=== PATIENT | male | born 1990 | race Hispanic/Latino ===

== ENCOUNTER 2020-06-01 22:59 | Inpatient (IN) | payer SELFPAY ==
[2020-06-01] MEDS ORDERED: LIDOCAINE VISCOUS 2% SOLN 15 ML UDC ONE (23:36)
[2020-06-01] MEDS ORDERED: MAGNE/ALUM HYDROXD 30 ML UCUP ONE (23:36)
[2020-06-01] MEDS ORDERED: PANTOPRAZOLE 40 MG INJ ONE (23:36)
[2020-06-01 23:46] LABS: Absolute Lymphocytes (CBC) 4.6 K/uL (0.7-4.9); Hematocrit 44.4 % (39.6-49.0); Lymphocytes % 29.2 % (15.3-44.8); MPV 9.6 fL (7.6-11.3); RBC Red Blood Cell Count 5.15 M/uL (4.33-5.43)
[2020-06-02 00:11] LABS: ALT/SGPT 106 U/L (12-78); AST/SGOT 39 U/L (15-37); Albumin 4.2 g/dL (3.4-5.0); Alkaline Phosphatase 96 U/L (45-117); BUN Blood Urea Nitrogen 23 mg/dL (7-18); Bicarbonate 26 mmol/L (21-32); Bilirubin Direct < 0.1 mg/dL (0-0.2); Bilirubin Total 0.3 mg/dL (0.2-1.0); Glucose Level 111 mg/dL (74-106); Lipase 3372 U/L (73-393); Potassium 3.5 mmol/L (3.5-5.1); Protein, Total 8.5 g/dL (6.4-8.2); Sodium Level 140 mmol/L (136-145)
[2020-06-02] MEDS ORDERED: ONDANSETRON 4 MG/2 ML VIAL ONE (00:54)
[2020-06-02] MEDS ORDERED: MORPHINE 4 MG/ML SYR ONE (00:54)
[2020-06-02] MEDS ORDERED: NA CHLORIDE 0.9% 1,000 ML ONE ×2 (00:54→02:56)
--- NOTE | 2020-06-02 01:19 | EDPHYS ---
Physician Documentation [facility] Name: Carlito Magaña Age: 29 yrs Sex: Male : 1990 Arrival Date: 06/01/2020 Time: 23:03 Bed 18 Private MD: ED Physician Jose J Gonzalez HPI: 06/02 00:07 This 29 yrs old Male presents to ER via Ambulatory with complaints of kb Abdominal Pain. 00:07 The patient presents with abdominal pain in the epigastric area. Onset: The kb symptoms/episode began/occurred 3 week(s) ago. The symptoms do not radiate. Associated signs and symptoms: none. The symptoms are described as burning. Modifying factors: The symptoms are alleviated by nothing, the symptoms are aggravated by food, spicy food. Severity of pain: At its worst the pain was moderate in the emergency department the pain is unchanged. The patient has not experienced similar symptoms in the past. The patient has not recently seen a physician. Pt reports burning pain to epigastric area that started 3 weeks ago and has become constant. States the pain is worse after eating, especially spice foods. . Historical: - Allergies: 06/01 23:27 No Known Allergies; bb - Home Meds: 23:27 None [Active]; bb - PMHx: 23:27 ADD/ADHD; Anxiety; bb - PSHx: 23:27 None; bb - Immunization history:: Adult Immunizations up to date. - Social history:: Smoking status: Patient reports the use of cigarette tobacco products, smokes one pack cigarettes per day. ROS: 06/02 00:08 Constitutional: Negative for fever, chills, and weight loss, Cardiovascular: Negative kb for chest pain, palpitations, and edema, Respiratory: Negative for shortness of breath, cough, wheezing, and pleuritic chest pain, Back: Negative for injury and pain, MS/Extremity: Negative for injury and deformity, Skin: Negative for injury, rash, and discoloration, Neuro: Negative for headache, weakness, numbness, tingling, and seizure. Abdomen/GI: Positive for abdominal pain, Negative for nausea and vomiting. Exam: 00:08 Constitutional: This is a well developed, well nourished patient who is awake, alert, kb and in no acute distress. Head/Face: Normocephalic, atraumatic. Chest/axilla: Normal chest wall appearance and motion. Nontender with no deformity. No lesions are appreciated. Cardiovascular: Regular rate and rhythm with a normal S1 and S2. No gallops, murmurs, or rubs. Normal PMI, no JVD. No pulse deficits. Respiratory: Lungs have equal breath sounds bilaterally, clear to auscultation and percussion. No rales, rhonchi or wheezes noted. No increased work of breathing, no retractions or nasal flaring. Back: No spinal tenderness. No costovertebral tenderness. Full range of motion. Skin: Warm, dry with normal turgor. Normal color with no rashes, no lesions, and no evidence of cellulitis. MS/ Extremity: Pulses equal, no cyanosis. Neurovascular intact. Full, normal range of motion. Neuro: Awake and alert, GCS 15, oriented to person, place, time, and situation. Cranial nerves II-XII grossly intact. Motor strength 5/5 in all extremities. Sensory grossly intact. Cerebellar exam normal. Normal gait. 00:08 Abdomen/GI: Inspection: abdomen appears normal, Bowel sounds: normal, in all quadrants, Palpation: soft, in all quadrants, mild abdominal tenderness, in the epigastric area. Vital Signs: 06/01 23:25 BP 151 / 89; Pulse 91; Resp 14 S; Temp 98.3(O); Pulse Ox 97% on R/A; Weight 104.33 kg bb (R); Height 5 ft. 8 in. (172.72 cm) (R); Pain 4/10; 06/02 00:36 BP 132 / 77; Pulse 78; Resp 18; Pulse Ox 96% on R/A; wh 01:44 BP 110 / 41; Pulse 71; Resp 18; Pulse Ox 98% ; wh 06/01 23:25 Body Mass Index 34.97 (104.33 kg, 172.72 cm) bb MDM: 06/01 23:18 Patient medically screened. kb 06/02 00:08 Data reviewed: vital signs, nurses notes. Data interpreted: Pulse oximetry: on room air kb is 97 %. Interpretation: normal. 01:17 Counseling: I had a detailed discussion with the patient and/or guardian regarding: the kb historical points, exam findings, and any diagnostic results supporting the discharge/admit diagnosis, lab results, radiology results, the need for further work-up and treatment in the hospital. Physician consultation: Mckayla Griffith MD was contacted at 01:17, regarding admission, to the medical/surgical unit. patient's condition, and will see patient in ED, shortly. 06/01 23:24 Order name: Basic Metabolic Panel; Complete Time: 00:18 kb 06/01 23:24 Order name: CBC with Diff; Complete Time: 23:48 kb 06/01 23:24 Order name: Hepatic Function; Complete Time: 00:18 kb 06/01 23:24 Order name: Lipase; Complete Time: 00:18 kb 06/02 01:16 Order name: Lipid Profile 06/01 23:24 Order name: IV Saline Lock; Complete Time: 23:39 kb 06/02 00:23 Order name: Abdomen EDNM 06/02 01:46 Order name: Heart Healthy [facility] 06/01 23:24 Order name: Labs collected and sent; Complete Time: 23:39 kb Administered Medications: 06/01 23:38 Drug: GI Cocktail without - (Maalox Suspension 30 ml, Lidocaine Liquid 2 % 15 wh ml) Route: PO; 06/02 00:30 Follow up: Response: No adverse reaction 06/01 23:38 Drug: ProTONIX 40 mg Route: IVP; Site: right antecubital; 06/02 00:30 Follow up: Response: No adverse reaction 00:45 Drug: NS 0.9% 1000 ml Route: IV; Rate: 1000 ml; Site: right antecubital; 01:43 Follow up: Response: No adverse reaction; IV Status: Completed infusion 00:47 Drug: morphine 4 mg {Note: RASS 0.} Route: IVP; Site: right antecubital; 01:43 Follow up: Response: No adverse reaction; Pain is decreased; RASS: Alert and Calm (0) 00:49 Drug: Zofran (Ondansetron) 4 mg Route: IVP; Site: right antecubital; 01:43 Follow up: Response: No adverse reaction; Nausea is decreased Disposition: 06/02/20 01:17 Hospitalization ordered by Mckayla Griffith for Observation. Preliminary diagnosis are Acute pancreatitis, Elevated white blood cell count. - Bed requested for Telemetry/MedSurg (observation). - Status is Observation. hb - Condition is Stable. - Problem is new. - Symptoms are unchanged. Addendum: 06/07/2020 03:23 Co-signature as Attending Physician, Jose J Gonzalez MD. m Signatures: Dispatcher [employer] EDNM Felipa Bob, TIGHTENING MACHINE OPERATOR-C TIGHTENING MACHINE OPERATOR-Ckb Emi Mcnair, RN RN Jo Dominguez, RN SATISH bb Tabatha Barros, SATISH COVARRUBIAS Afsaneh Stanley Jose J Gonzalez MD MD [id number] Corrections: (The following items were deleted from the chart) 06/02 00:24 06/01 23:49 Abdomen Pelvis W Con+CT.RAD.BRZ ordered. [facility] 06/02 01:32 01:17 Hospitalization Ordered by Mckayla Griffith MD for Observation. Preliminary mw diagnosis is Acute pancreatitis; Elevated white blood cell count. Bed requested for Telemetry/MedSurg (observation). Status is Observation. Condition is Stable. Problem is new. Symptoms are unchanged. kb 05:54 01:32 06/02/2020 01:17 Hospitalization Ordered by Mckayla Griffith MD for Observation. mw Preliminary diagnosis is Acute pancreatitis; Elevated white blood cell count. Bed requested for [facility] ER HOLD. Status is Observation. Condition is Stable. Problem is new. Symptoms are unchanged. mw 05:59 05:54 06/02/2020 01:17 Hospitalization Ordered by Mckayla Griffith MD for Observation. mw Preliminary diagnosis is Acute pancreatitis; Elevated white blood cell count. Bed requested for Telemetry/MedSurg (observation). Status is Observation. Condition is Stable. Problem is new. Symptoms are unchanged. mw 08:13 05:59 06/02/2020 01:17 Hospitalization Ordered by Mckayla Griffith MD for Observation. hb Preliminary diagnosis is Acute pancreatitis; Elevated white blood cell count. Bed requested for Telemetry/MedSurg (observation). Status is Observation. Condition is Stable. Problem is new. Symptoms are unchanged.
--- NOTE | 2020-06-02 01:19 | ER ---
Nurse's Notes [facility] Name: Carlito Magaña Age: 29 yrs Sex: Male : 1990 Arrival Date: 06/01/2020 Time: 23:03 Bed 18 Private MD: Diagnosis: Acute pancreatitis;Elevated white blood cell count Presentation: 06/01 23:25 Chief complaint: Patient states: he has been having intermittent epigastric pain x 3 bb weeks but constantly this last week, worse with eating hot things and burning in his throat. Coronavirus screen: At this time, the client does not indicate any symptoms associated with coronavirus-19. Ebola Screen: No symptoms or risks identified at this time. Initial Sepsis Screen: Does the patient meet any 2 criteria? No. Patient's initial sepsis screen is negative. Does the patient have a suspected source of infection? No. Patient's initial sepsis screen is negative. Risk Assessment: Do you want to hurt yourself or someone else? Patient reports no desire to harm self or others. Onset of symptoms was May 2020. 23:25 Method Of Arrival: Ambulatory bb 23:25 Acuity: DEIDRA 3 bb Historical: - Allergies: 23:27 No Known Allergies; bb - Home Meds: 23:27 None [Active]; bb - PMHx: 23:27 ADD/ADHD; Anxiety; bb - PSHx: 23:27 None; bb - Immunization history:: Adult Immunizations up to date. - Social history:: Smoking status: Patient reports the use of cigarette tobacco products, smokes one pack cigarettes per day. Screenin/01 00:36 Abuse screen: Denies threats or abuse. Denies injuries from another. Nutritional wh screening: No deficits noted. Tuberculosis screening: No symptoms or risk factors identified. Fall Risk None identified. Assessment: 06/01 23:40 General: Appears in no apparent distress. Behavior is calm, cooperative, appropriate wh for age. Pain: Complains of pain in epigastric area Pain does not radiate. Pain currently is 4 out of 10 on a pain scale. Quality of pain is described as burning. Neuro: Level of Consciousness is awake, alert, obeys commands, Oriented to person, place, time, situation, Appropriate for age. Cardiovascular: Heart tones S1 S2. Respiratory: Airway is patent Respiratory effort is even, unlabored, Respiratory pattern is regular, symmetrical, Breath sounds are clear bilaterally. GI: Abdomen is flat, non-distended, Bowel sounds present X 4 quads. Abd is soft Abdomen is tender to palpation in epigastric area Reports upper abdominal pain. : No signs and/or symptoms were reported regarding the genitourinary system. EENT: No signs and/or symptoms were reported regarding the EENT system. Derm: Skin is intact, is healthy with good turgor, Skin is pink, warm \T\ dry. normal. Musculoskeletal: Circulation, motion, and sensation intact. 06/02 00:36 Reassessment: Patient appears in no apparent distress at this time. No changes from previously documented assessment. Patient and/or family updated on plan of care and expected duration. Pain level reassessed. Patient is alert, oriented x 3, equal unlabored respirations, skin warm/dry/pink. 01:44 Reassessment: Patient appears in no apparent distress at this time. No changes from previously documented assessment. Patient and/or family updated on plan of care and expected duration. Pain level reassessed. Patient is alert, oriented x 3, equal unlabored respirations, skin warm/dry/pink. 07:11 Reassessment: Attempted to call report to floor, receiving nurse unavailable, still in hb morning report per nuclear unit operator. Awaiting a call back at this time. Pt charting continues in [facility]. Vital Signs: 06/01 23:25 BP 151 / 89; Pulse 91; Resp 14 S; Temp 98.3(O); Pulse Ox 97% on R/A; Weight 104.33 kg bb (R); Height 5 ft. 8 in. (172.72 cm) (R); Pain 4/10; 06/02 00:36 BP 132 / 77; Pulse 78; Resp 18; Pulse Ox 96% on R/A; wh 01:44 BP 110 / 41; Pulse 71; Resp 18; Pulse Ox 98% ; 06/01 23:25 Body Mass Index 34.97 (104.33 kg, 172.72 cm) bb ED Course: 06/01 23:03 Patient arrived in ED. cf2 23:03 Jaleel Navarrete RN is Primary Nurse. rv 23:18 Felipa Bob FNP-C [facility] kb 23:18 Jose J Gonzalez MD is Attending Physician. kb 23:27 Triage completed. 23:27 Arm band placed on Patient placed in an exam room, on a stretcher, on pulse oximetry. 06/02 00:05 Inserted saline lock: 20 gauge in right antecubital area, using aseptic technique. Blood collected. 00:36 Patient has correct armband on for positive identification. Bed in low position. Call light in reach. Side rails up X 1. Pulse ox on. NIBP on. 00:57 Abdomen In Process Unspecified. EDRI 01:17 Mckayla Griffith MD is Hospitalizing Provider. kb 01:42 No provider procedures requiring assistance completed. Patient admitted, IV remains in place. 04:11 Primary Nurse role handed off by Jaleel Navarrete RN 04:11 Afsaneh Stanley is Primary Nurse. Administered Medications: 06/01 23:38 Drug: GI Cocktail without - (Maalox Suspension 30 ml, Lidocaine Liquid 2 % 15 wh ml) Route: PO; 06/02 00:30 Follow up: Response: No adverse reaction 06/01 23:38 Drug: ProTONIX 40 mg Route: IVP; Site: right antecubital; 06/02 00:30 Follow up: Response: No adverse reaction 00:45 Drug: NS 0.9% 1000 ml Route: IV; Rate: 1000 ml; Site: right antecubital; 01:43 Follow up: Response: No adverse reaction; IV Status: Completed infusion 00:47 Drug: morphine 4 mg {Note: RASS 0.} Route: IVP; Site: right antecubital; 01:43 Follow up: Response: No adverse reaction; Pain is decreased; RASS: Alert and Calm (0) 00:49 Drug: Zofran (Ondansetron) 4 mg Route: IVP; Site: right antecubital; 01:43 Follow up: Response: No adverse reaction; Nausea is decreased Outcome: 01:17 Decision to Hospitalize by Provider. kb 01:42 Admitted to ER Hold. Please see [facility] for further documentation. 01:42 Condition: stable 01:42 Instructed on the need for admit. 08:13 Patient left the ED. hb Signatures: Dispatcher [employer] EDMS Felipa Bob, FAWN-C BALLAST CLEANING OPERATOR-Jo Olivier RN RN Tabatha Oliver, RN RN awa Stanley, Afsaneh Jaleel Navarrete, RN RN bertram Zavala, Kristen [facility]
[2020-06-02] MEDS ORDERED: ONDANSETRON 4 MG/2 ML VIAL IV PRN (01:43)
[2020-06-02] MEDS ORDERED: ACETAMINOPHEN 500 MG TAB PO PRN (01:43)
[2020-06-02] MEDS: NA CHLORIDE 0.9% 1,000 ML IV SCH ×6 (02:00→23:16)
[2020-06-02] MEDS ORDERED: ALBUTEROL 2.5 MG/3 ML NEB SOL NEB SCH (02:00)
[2020-06-02] MEDS ORDERED: NA CHLORIDE 0.9% 1,000 ML IV SCH (02:00)
[2020-06-02 02:12] VITALS: BMI 34.9
[2020-06-02] MEDS ORDERED: HYDROCODONE/APAP 7.5/325 MG TAB PO PRN (09:22)
[2020-06-02] MEDS ORDERED: TRAMADOL HCL 50 MG TAB PO PRN (09:22)
[2020-06-02] MEDS: MORPHINE 2 MG/ML SYR IV PRN ×2 (10:03→16:56)
[2020-06-02] MEDS: ENOXAPARIN 40 MG/0.4 ML SQ SCH (10:04)
[2020-06-03 00:34] VITALS: O2SAT 98
--- NOTE | 2020-06-03 01:58 | P.HP ---
Certification for Inpatient Patient admitted to: Inpatient With expected LOS: >2 Midnights Patient will require the following post-hospital care: None Practitioner: I am a practitioner with admitting privileges, knowledge of patient current condition, hospital course, and medical plan of care. Services: Services provided to patient in accordance with Admission requirements found in Title 42 Section 412.3 of the Code of Federal Regulations Patient History Date of Service: 06/02/20 Reason for admission: Acute pancreatitis History of Present Illness: Patient is a 29-year-old gentleman who came to the hospital with abdominal pain. Pain was in the epigastric region. Patient states it was severe. Patient came into the emergency room for further evaluation. In the emergency room patient was given pain medication and IV fluids. Labs revealed pancreatitis. CT scan did not reveal the etiology of the pancreatitis. Patient denies alcohol use. Patient's triglycerides were normal as well. Plan know the etiology as to the cause of the pancreatitis but he will need to be admitted to the hospital for further workup. Allergies No Known Drug Allergies Allergy (Verified 06/02/20 02:14) Unknown No Known Allergies Allergy (Uncoded 06/02/20 02:14) Unknown Home Medications: NK [No Home Meds] 06/02/20 - Past Medical/Surgical History Has patient received pneumonia vaccine in the past: No Diabetic: No -: ADHD -: Anxiety Past Surgical History: Patient denies surgical history - Family History Father Family History: Reviewed- Non-Contributory - Social History Smoking Status: Current every day smoker Alcohol use: No CD- Drugs: No Place of Residence: Home Review of Systems 10-point ROS is otherwise unremarkable Physical Examination - Vital Signs Temperature: 97.9 F Blood Pressure: 117/62 Pulse: 76 Respirations: 18 Pulse Ox (%): 98 - Physical Exam General: Alert, In no apparent distress, Oriented x3 HEENT: Atraumatic, PERRLA, Mucous membr. moist/pink, EOMI, Sclerae nonicteric Neck: Supple, 2+ carotid pulse no bruit, No LAD, Without JVD or thyroid abnormality Respiratory: Clear to auscultation bilaterally, Normal air movement Cardiovascular: Regular rate/rhythm, Normal S1 S2, No murmurs Gastrointestinal: Normal bowel sounds, Soft and benign, Non-distended, No guarding, Tenderness, Rebound Musculoskeletal: No clubbing, No swelling, No tenderness Integumentary: No rashes Neurological: Normal gait, Normal speech, Normal strength at 5/5 x4 extr, Normal tone, Sensation intact, Cranial nerves 3-12 intact, Normal affect Lymphatics: No axilla or inguinal lymphadenopathy Assessment & Plan - Problems (Diagnosis) (1) Acute pancreatitis Current Visit: Yes Status: Acute - Plan Plan: 1. Aggressive IV hydration 2. Pain medication 3. Monitor lipase level 4. May need to repeat CT scan or will do an ultrasound 5. Monitor labs closely 6. GI and DVT prophylaxis Discharge Plan: Home Plan to discharge in: Greater than 2 days - Advance Directives Does patient have a Living Will: No Does patient have a Durable POA for Healthcare: No - Code Status/Comfort Care Code Status Assessed: Yes Code Status: Full Code Critical Care: No Time Spent Managing PTS Care (In Minutes): 40
--- NOTE | 2020-06-03 04:45 | P.PN ---
Subjective Date of Service: 06/03/20 PATIENT'S SYMPTOMS ARE IMPROVING. PAIN IS BETTER CONTROLLED. AWAITING LABS THIS MORNING. IF CONTINUES TO IMPROVE THEN WILL GO AHEAD AND START HIM ON A DIET. IF HE IS ABLE TO TOLERATE THE DIET WE MAY BE ABLE TO DISCHARGE HIM HOME IN THE MORNING. Review of Systems 10-point ROS is otherwise unremarkable Physical Examination - Vital Signs Temperature: 97.9 F Blood Pressure: 117/62 Pulse: 76 Respirations: 18 Pulse Ox (%): 98 - Physical Exam General: Alert, In no apparent distress, Oriented x3 Respiratory: Clear to auscultation bilaterally, Normal air movement Cardiovascular: Regular rate/rhythm, Normal S1 S2, No murmurs Gastrointestinal: Normal bowel sounds, Soft and benign, Non-distended, No tenderness, No rebound, No guarding Musculoskeletal: No clubbing, No swelling, No tenderness Neurological: Normal strength at 5/5 x4 extr, Sensation intact, Cranial nerves 3-12 intact - Studies Medications List Reviewed: Yes Assessment & Plan - Problems (Diagnosis) (1) Acute pancreatitis Status: Acute - Plan Plan: 1. Aggressive IV hydration 2. Pain medication 3. Monitor lipase level 4. May need to repeat CT scan or will do an ultrasound 5. Monitor labs closely 6. GI and DVT prophylaxis Discharge Plan: Home Plan to discharge in: Greater than 2 days - Advance Directives Does patient have a Living Will: No Does patient have a Durable POA for Healthcare: No - Code Status/Comfort Care Code Status: Full Code Critical Care: No Time Spent Managing PTS Care (In Minutes): 30
[2020-06-03] MEDS: NA CHLORIDE 0.9% 1,000 ML IV SCH ×4 (05:38→19:50)
[2020-06-03 06:49] LABS: Absolute Lymphocytes (CBC) 3.8 K/uL (0.7-4.9); Basophils % 0.7 % (0-1.3); Hematocrit 41.6 % (39.6-49.0); Lymphocytes % 29.8 % (15.3-44.8)
[2020-06-03 06:51] LABS: Magnesium 1.9 mg/dL (1.8-2.4); Phosphorus 2.7 mg/dL (2.5-4.9)
[2020-06-03 07:04] LABS: Albumin 3.6 g/dL (3.4-5.0); Bilirubin Total 0.5 mg/dL (0.2-1.0); Potassium 3.5 mmol/L (3.5-5.1); Protein, Total 7.5 g/dL (6.4-8.2)
[2020-06-03] MEDS: ENOXAPARIN 40 MG/0.4 ML SQ SCH (08:19)
[2020-06-03 09:15] LABS: Urine Appearance CLEAR; Urine Bilirubin NEGATIVE (NEG); Urine Blood NEGATIVE (NEG); Urine Color YELLOW; Urine Glucose NEGATIVE (NEG); Urine Protein NEGATIVE (NEG); Urine Urobilinogen 0.2 mg/dL (0.2-1.0)
[2020-06-03 09:17] LABS: Urine Microscopic Reflex NO UMIC
[2020-06-03] MEDS ORDERED: POTASSIUM CL SA 10 MEQ TAB PO ONE (12:00)
--- NOTE | 2020-06-04 11:34 | RAD REPORT ---
EXAM DESCRIPTION: Pelvis Wo Contrast CLINICAL HISTORY: 29 years Male ABD PAIN COMPARISON: None TECHNIQUE: Images were obtained in axial, sagittal, and coronal planes. No oral or intravenous contr ast was administered. This exam was performed according to our departmental dose-optimization program which includes use of Automated Exposure Control, adjustment of the mA and/or kV according to patient size and/or use o f iterative reconstruction technique. FINDINGS: Decreased attenuation involving liver consistent with fatty change. Spleen is prominent in size measuring 12.3 cm in greatest dimension. Contracted gallbladder. Mildly indistinct pancreatic m argins. No abnormal fluid collections involving the pancreas or abnormal calcification. No obstructing renal calcifications bilaterally. No hydronephrosis bilaterally. Unremarkable bladder. Appendix within normal limits. No bowel obstruction, perforation, or inflammation. No dilatation abdominal aorta. No adenopathy or abnormal fluid collections seen. No abnormality lower lungs bilaterally. No acute osseous abnormality. IMPRESSION: Fatty change involving liver. Indistinct pancreatic margins. Clinical correlation would be suggested to further exclude mild pancre atitis. No additional abnormalities seen. Electronically signed by: Carri Arvizu MD 06/02/2020 1:04 AM CDT Due to temporary technical issues with the PACS/Fluency reporting system, reports are being signed by the in house radiologist without review as a courtesy to ensure prompt reporting. The interpreting r adiologist is fully responsible for the content of the report.
[2020-06-06 06:47] VITALS: BP 117/62; TEMP 97.9
--- NOTE | 2020-06-06 06:48 | P.DS ---
Discharge Date: 06/03/20 Disposition: AMA-LEFT AGAINST MEDICAL ADVIC Discharge Condition: FAIR Reason for Admission: Acute pancreatitis - Problems (1) Acute pancreatitis Status: Acute Brief History of Present Illness: Patient is a 29-year-old gentleman who came to the hospital with abdominal pain. Pain was in the epigastric region. Patient states it was severe. Patient came into the emergency room for further evaluation. In the emergency room patient was given pain medication and IV fluids. Labs revealed pancreatitis. CT scan did not reveal the etiology of the pancreatitis. Patient denies alcohol use. Patient's triglycerides were normal as well. Plan know the etiology as to the cause of the pancreatitis but he will need to be admitted to the hospital for further workup. Hospital Course: Patient decided to leave against medical advise. Patient's lipase was still elevated. I had a long conversation with patient about refrain from fatty foods and alcohol. Patient realized he needed to come back to the hospital if his condition worsens. Vital Signs/Physical Exam: Temp Pulse Resp BP Pulse Ox 97.9 F 76 18 117/62 98 06/06/20 06:46 06/06/20 06:46 06/06/20 06:46 06/06/20 06:46 06/06/20 06:46 General: Alert, In no apparent distress, Oriented x3 Laboratory Data at Discharge: WBC 12.9 K/uL (4.3-10.9) H D 06/03/20 05:27 Hgb 13.8 g/dL (13.6-17.9) 06/03/20 05:27 Hct 41.6 % (39.6-49.0) 06/03/20 05:27 Plt Count 246 K/uL (152-406) 06/03/20 05:27 Sodium 140 mmol/L (136-145) 06/03/20 05:27 Potassium 3.5 mmol/L (3.5-5.1) 06/03/20 05:27 BUN 16 mg/dL (7-18) 06/03/20 05:27 Creatinine 1.13 mg/dL (0.55-1.3) 06/03/20 05:27 Glucose 81 mg/dL (74-106) 06/03/20 05:27 Phosphorus 2.7 mg/dL (2.5-4.9) 06/03/20 05:27 Magnesium 1.9 mg/dL (1.8-2.4) 06/03/20 05:27 Total Bilirubin 0.5 mg/dL (0.2-1.0) 06/03/20 05:27 AST 33 U/L (15-37) 06/03/20 05:27 ALT 80 U/L (12-78) H 06/03/20 05:27 Alkaline Phosphatase 83 U/L (45-117) 06/03/20 05:27 Triglycerides 396 mg/dL (<150) H 06/02/20 00:01 Cholesterol 240 mg/dL (<200) H 06/02/20 00:01 HDL Cholesterol 30 mg/dL (40-60) L 06/02/20 00:01 Cholesterol/HDL Ratio 8.00 06/02/20 00:01 Lipase 1736 U/L (73-393) H 06/03/20 05:27 Lipase Cancelled 06/03/20 05:27 Home Medications: NK [No Home Meds] 06/02/20 Patient Discharge Instructions: Patient left against medical advice Time spent managing pt's care (in minutes): 20
== END 2020-06-03 21:23 | disposition left against medical advice (07) | DRG 440 ==
LOC: ER 22:59 → ERHOLD 06-02 01:50 → 2ND 06-02 07:59
PROVIDERS: ADMIT Hospitalist; ATTEND Hospitalist
DX: K85.90 Acute pancreatitis without necrosis or infection, unspecified (principal); F17.200 Nicotine dependence, unspecified, uncomplicated; Z53.29 Procedure and treatment not carried out because of patient's decision for other reasons
CPT/HCPCS: 36415; 74176; 80048; 80053; 80061; 80076; 81003; 83690; 83735; 84100; 85025; 96361; 96374; 96375; 99285; C9113; J1650; J2270; J2405; J7030

== ENCOUNTER 2023-02-28 01:59 | Emergency (ER) | payer SELFPAY ==
[2023-02-28] MEDS ORDERED: BUPIVACAINE 0.5% PF 10 ML VIAL ONE (02:36)
--- NOTE | 2023-02-28 02:57 | EDPHYS ---
Physician Documentation [facility] Name: Carlito Magaña Age: 32 yrs Sex: Male : 1990 Arrival Date: 02/28/2023 Time: 01:59 Bed 10 Private MD: ED Physician Berhane Trevino HPI: 02/28 02:15 This 32 yrs old Male presents to ER via Ambulatory with complaints of jmm Toothache. 02:15 The patient presents with pain. Onset: The symptoms/episode began/occurred gradually. jmm Duration: The symptoms are continuous. This is a 32-year-old male with history of ADHD and anxiety the presents emerged part with complaints of right lower molar dental pain beginning this evening. Patient was unable to control symptoms with home medications.. Historical: - Allergies: 02:27 No Known Allergies; pf1 - PMHx: 02:27 ADD/ADHD; Anxiety; pf1 - PSHx: 02:27 None; pf1 - Immunization history:: Adult Immunizations not up to date, Client reports having NOT received the Covid vaccine. Last tetanus immunization: > 10 years ago Flu vaccine is not up to date. - Social history:: Smoking status: Patient reports the use of cigarette tobacco products, Patient/guardian denies using alcohol, street drugs. ROS: 02:15 Constitutional: Negative for fever, chills, and weight loss, Cardiovascular: Negative jmm for chest pain, palpitations, and edema, Respiratory: Negative for shortness of breath, cough, wheezing, and pleuritic chest pain. 02:15 ENT: Positive for dental pain. 02:15 All other systems are negative. Exam: 02:15 Constitutional: This is a well developed, well nourished patient who is awake, alert, jmm and in no acute distress. Head/Face: atraumatic. Eyes: EOMI, no conjunctival erythema appreciated ENT: Moist Mucus Membranes Neck: Trachea midline, Supple Chest/axilla: Normal chest wall appearance and motion. Cardiovascular: Regular rate and rhythm. No edema appreciated Respiratory: Normal respirations, no respiratory distress appreciated Abdomen/GI: Non distended Back: Normal ROM Skin: General appearance color normal 02:15 MS/ Extremity: Moves all extremities, no obvious deformities appreciated, no edema noted to the lower extremities Neuro: Awake and alert Psych: Behavior is normal, Mood is normal, Patient is cooperative and pleasant 02:15 ENT: Dental exam: Dental caries and gingival swelling appreciated of the right lower molars. 02:15 Musculoskeletal/extremity: ROM: intact in all extremities. Vital Signs: 02:25 BP 126 / 85; Pulse 83; Resp 16; Temp 98.8; Pulse Ox 98% ; Weight 104.33 kg; Height 5 pf1 ft. 8 in. ; Pain 10/10; 03:20 BP 113 / 79; Pulse 79; Resp 18; Pulse Ox 100% ; Pain 3/10; pf1 02:25 Body Mass Index 34.97 (104.33 kg, 172.72 cm) pf1 02:25 Pain Scale: Adult pf1 03:20 Pain Scale: Adult pf1 MDM: 02:16 Patient medically screened. [facility] 02:55 Differential diagnosis: dental caries, gingivitis, dental abscess. Data reviewed: vital [facility] signs, nurses notes. I considered the following discharge prescriptions or medication management in the emergency department Medications were administered in the Emergency Department. See MAR. Historians other than the Patient: Spouse/Significant Other: Spouse. Counseling: I had a detailed discussion with the patient and/or guardian regarding: the historical points, exam findings, and any diagnostic results supporting the discharge/admit diagnosis, the need for outpatient follow up, to return to the emergency department if symptoms worsen or persist or if there are any questions or concerns that arise at home. ED course: Pain was partially alleviated with inferior alveolar block. 2 mL of 0.5% Marcaine was injected. Patient tolerated the procedure well. Administered Medications: 03:00 Drug: Ketorolac IM 30 mg Route: IM; Site: right gluteus; pf1 03:23 Follow up: Response: No adverse reaction; Marked relief of symptoms; Pain is decreased pf1 03:05 Drug: Amoxicillin-Clavulanate PO 875 mg Route: PO; pf1 03:23 Follow up: Response: No adverse reaction; Marked relief of symptoms pf1 03:06 Drug: Bupivacaine Infiltration (0.5 %) 10 ml {Note: administered per PA. Cy} Volume: pf1 10 ml; Route: Infiltration; 03:23 Follow up: Response: No adverse reaction; Marked relief of symptoms pf1 Disposition: 05:49 Co-signature as Attending Physician, Berhane Trevino MD I agree with the assessment sp4 and plan of care. I reviewed the patient's care provided by the Advanced Practice Provider and agree with the diagnosis and treatment plan. Disposition Summary: 02/28/23 02:56 Discharge Ordered Location: Home [facility] Condition: Stable [facility] Diagnosis - Dental caries, unspecified [facility] Followup: [facility] - With: Andrzej Das DDS - When: 2 - 3 days - Reason: Recheck today's complaints, Continuance of care, Re-evaluation by your physician Discharge Instructions: - Discharge Summary Sheet [facility] - Dental Caries, Adult [facility] Forms: - Medication Reconciliation Form [facility] - Thank You Letter [facility] - Antibiotic Education [facility] - Prescription Opioid Use [facility] Prescriptions: - Amoxicillin 875 mg Oral Tablet - take 1 tablet by ORAL route every 12 hours for 10 days; 20 tablet; Refills: 0, [facility] Product Selection Permitted - Diclofenac Sodium 75 mg Oral Tablet Sustained Release - take 1 tablet by ORAL route 2 times per day; 30 tablet; Refills: 0, Product [facility] Selection Permitted Signatures: Cy Gonzalez PA PA jmm finley, Pamala, RN RN pf1 Berhane Trevino MD MD sp4
--- NOTE | 2023-02-28 02:57 | ER ---
Nurse's Notes [facility] Name: Carlito Magaña Age: 32 yrs Sex: Male : 1990 Arrival Date: 02/28/2023 Time: 01:59 Bed 10 Private MD: Diagnosis: Dental caries, unspecified Presentation: 02/28 02:25 Chief complaint: Patient states: right lower mouth tooth pain of 10,onset 1900. Patient pf1 stated took Excedrin at 2200. Coronavirus screen: Vaccine status: Patient reports being unvaccinated. Client denies travel out of the [place] in the last 14 days. At this time, the client does not indicate any symptoms associated with coronavirus-19. Ebola Screen: Patient negative for fever greater than or equal to 101.5 degrees Fahrenheit, and additional compatible Ebola Virus Disease symptoms. Initial Sepsis Screen: Does the patient meet any 2 criteria? No. Patient's initial sepsis screen is negative. Does the patient have a suspected source of infection? No. Patient's initial sepsis screen is negative. Risk Assessment: Do you want to hurt yourself or someone else? Patient reports no desire to harm self or others. 02:25 Method Of Arrival: Ambulatory pf1 02:25 Acuity: DEIDRA 4 pf1 02:30 Onset of symptoms was February 27, 2023. pf1 Triage Assessment: 02:30 General: Appears in no apparent distress. uncomfortable, well groomed, well developed, pf1 Behavior is calm, cooperative, appropriate for age, quiet. 02:30 Pain: Complains of pain in right lower mouth/tooth pain Pain currently is 10 out of 10 pf1 on a pain scale. EENT: Reports pain in mouth Pain is 10 out of 10 on a pain scale. Neuro: No deficits noted. Level of Consciousness is awake, alert, obeys commands, Oriented to person, place, time, situation. Cardiovascular: No deficits noted. Capillary refill < 3 seconds Patient's skin is warm and dry. Respiratory: No deficits noted. Airway is patent Respiratory effort is even, unlabored, Respiratory pattern is regular, symmetrical. GI: No deficits noted. No signs and/or symptoms were reported involving the gastrointestinal system. : No deficits noted. No signs and/or symptoms were reported regarding the genitourinary system. Derm: No deficits noted. No signs and/or symptoms reported regarding the dermatologic system. Musculoskeletal: No deficits noted. No signs and/or symptoms reported regarding the musculoskeletal system. Historical: - Allergies: 02:27 No Known Allergies; pf1 - PMHx: 02:27 ADD/ADHD; Anxiety; pf1 - PSHx: 02:27 None; pf1 - Immunization history:: Adult Immunizations not up to date, Client reports having NOT received the Covid vaccine. Last tetanus immunization: > 10 years ago Flu vaccine is not up to date. - Social history:: Smoking status: Patient reports the use of cigarette tobacco products, Patient/guardian denies using alcohol, street drugs. Screenin:30 [facility] ED Fall Risk Assessment (Adult) History of falling in the last 3 months, pf1 including since admission No falls in past 3 months (0 pts) Confusion or Disorientation No (0 pts) Intoxicated or Sedated No (0 pts) Impaired Gait No (0 pts) Mobility Assist Device Used No (0 pt) Altered Elimination No (0 pt) Score/Fall Risk Level 0 - 2 = Low Risk Oriented to surroundings, Maintained a safe environment, Educated pt \T\ family on fall prevention, incl call for assistance when getting out of bed, Assessed \T\ reinforced patient's understanding of fall precautions, Provided non-skid footwear, Hourly rounding (assess needs \T\ fall precautionary measures) done, Used ambulatory aids as needed (educated on \T\ assisted with), Used gait belt as appropriate. 02:30 Abuse screen: Denies threats or abuse. Nutritional screening: No deficits noted. pf1 Tuberculosis screening: No symptoms or risk factors identified. Assessment: 02:30 General: see triage assessment. pf1 Vital Signs: 02:25 BP 126 / 85; Pulse 83; Resp 16; Temp 98.8; Pulse Ox 98% ; Weight 104.33 kg; Height 5 pf1 ft. 8 in. ; Pain 10/10; 03:20 BP 113 / 79; Pulse 79; Resp 18; Pulse Ox 100% ; Pain 3/10; pf1 02:25 Body Mass Index 34.97 (104.33 kg, 172.72 cm) pf1 02:25 Pain Scale: Adult pf1 03:20 Pain Scale: Adult pf1 ED Course: 02:02 Patient arrived in ED. [email or web address] 02:11 [facility] 02:11 Berhane Trevino MD is Attending Physician. [facility] 02:27 Triage completed. pf1 02:30 Arm band placed on. pf1 02:30 Patient has correct armband on for positive identification. Call light in reach. pf1 02:30 No provider procedures requiring assistance completed. pf1 02:30 Patient did not have IV access during this emergency room visit. pf1 02:56 Andrzej Das DDS is Referral Physician. elias Administered Medications: 03:00 Drug: Ketorolac IM 30 mg Route: IM; Site: right gluteus; pf1 03:23 Follow up: Response: No adverse reaction; Marked relief of symptoms; Pain is decreased pf1 03:05 Drug: Amoxicillin-Clavulanate PO 875 mg Route: PO; pf1 03:23 Follow up: Response: No adverse reaction; Marked relief of symptoms pf1 03:06 Drug: Bupivacaine Infiltration (0.5 %) 10 ml {Note: administered per JASON Benoit.} Volume: pf1 10 ml; Route: Infiltration; 03:23 Follow up: Response: No adverse reaction; Marked relief of symptoms pf1 Medication: 03:00 VIS not applicable for this client. pf1 Outcome: 02:56 Discharge ordered by . elias 03:22 Discharged to home ambulatory, with family. pf1 03:22 Condition: improved 03:22 Discharge instructions given to family, Instructed on discharge instructions, follow up and referral plans. Demonstrated understanding of instructions, follow-up care, medications, Prescriptions given X 2. 03:23 Patient left the ED. pf1 Signatures: Cy Gonzalez PA PA jmm Jeffries, Jennifer [email or web address] Yoselin silveira, RN RN pf1
[2023-02-28] MEDS ORDERED: AMOX/K CLAV 875 MG TAB ONE (03:05)
[2023-02-28] MEDS ORDERED: KETOROLAC 30 MG/ML INJ ONE (03:05)
[2023-02-28 03:44] VITALS: BP 126/85; TEMP 98.8; O2SAT 98
== END 2023-02-28 03:23 | disposition home or self-care (01) ==
LOC: ER 01:59
DX: K02.9 Dental caries, unspecified (principal)
CPT/HCPCS: 96372; 99284